=== PATIENT | male | born 1960 | race Caucasian/White ===

== ENCOUNTER 2021-05-29 11:20 | Emergency (ER) | payer MEDICAID ==
[~2021-05-29] VITALS: Ht 182.9 cm; Wt 106.6 kg
[2021-05-29 12:20] VITALS: BP 141/87
[2021-05-29] MEDS ORDERED: GUAI1TBM19 PO (12:25)
[2021-05-29] MEDS ORDERED: IBUP-1957 PO (12:25)
[2021-05-29] MEDS ORDERED: KETOROLAC TROMETHAMINE INJ 60 MG/2 ML VIAL IM ONE (12:30)
[2021-05-29] MEDS ORDERED: GUAIFENESIN/D-METHORPHAN HB 5 ML UDC PO ONE (12:30)
[2021-05-29] MEDS ORDERED: KETOROLAC TROMETHAMINE INJ 30 MG/ML VIAL ONE (12:46)
[2021-05-29] MEDS ORDERED: GUAIFENESIN/D-METHORPHAN HB 5 ML UDC ONE (12:46)
[2021-05-29] MEDS ORDERED: AZIT250T13 PO (13:01)
--- NOTE | 2021-05-29 13:58 | NUR ---
Patient discharged to home in stable condition. Written and verbal after care instructions given. Patient verbalizes understanding of instruction.
--- NOTE | 2021-05-29 14:10 | NUR ---
RECEIVED CALL FROM LAB THAT PATIENT TESTED POSITIVE FOR COVID, CALLED AND LEFT MESSAGE TO INFORM PATIENT
== END 2021-05-29 14:11 | disposition home or self-care (01) ==
LOC: ER 11:24
DX: U07.1 COVID-19 (principal); E78.00 Pure hypercholesterolemia, unspecified; I10 Essential (primary) hypertension; R91.8 Other nonspecific abnormal finding of lung field
CPT/HCPCS: 71045; 87426; 96372; 99284; C9803; J1885

== ENCOUNTER 2021-05-30 22:28 | Inpatient (IN) | payer MEDICAID ==
[~2021-05-30] VITALS: Ht 182.9 cm; Wt 95.3 kg
[~2021-05-30 22:28] MED LIST: AZIT250T13 PO; GUAI1TBM19 PO; IBUP-1957 PO
--- NOTE | 2021-05-30 23:25 | NUR ---
PATIENT BIBWIFE C/O COUGH, FEVER AND DIFFICULTY BREATHING. PATIENT TESTED + FOR COVID 3 DAYS AGO. ON Z PACK. TOOK MOTRIN 800MG PO AT 1999. PATIENT IS A/O X 4, RR EVEN AND UNLABORED, NO SOB NOTED. PATIENT CONNECTED TO TOOL AND DIE MAKER AND POX.
[2021-05-31] MEDS ORDERED: CEFTRIAXONE 1GM BAG (ER ONLY) 50 ML IV ONE (00:17)
[2021-05-31] MEDS ORDERED: AZITHROMYCIN 500 MG VIAL ONE (00:18)
--- NOTE | 2021-05-31 00:27 | NUR ---
BLOOD COLLECTED AND SENT TO LAB
[2021-05-31] MEDS ORDERED: AZITHROMYCIN 500 MG in IV D5W 250 ML IV ONE (00:30)
[2021-05-31] MEDS ORDERED: CEFTRIAXONE 1GM BAG (ER ONLY) 1 GM/50 ML PIGGYBACK IV ONE (00:30)
[2021-05-31] MEDS ORDERED: IV NS 0.9% 500 ML BAG IV ONE (00:30)
[2021-05-31 00:42] LABS: BASOPHILS % (AUTO) 0.3 % (0.0-2.0); EOSINOPHILS % (AUTO) 0.1 % (0.0-6.0); HEMATOCRIT 38 % (39-51); HEMOGLOBIN 12.8 g/dL (13.5-17.5); LYMPHOCYTES # (AUTO) 0.6 K/uL (0.8-4.8); LYMPHOCYTES % (AUTO) 15.3 % (20.0-44.0); MEAN CORPUSCULAR HGB CONC 34 g/dl (31.0-36.0); MEAN CORPUSCULAR VOLUME 86 fL (80-96); MONOCYTES # (AUTO) 0.2 K/uL (0.1-1.30); MONOCYTES % (AUTO) 5.6 % (2.0-12.0); NEUTROPHILS % (AUTO) 78.7 % (43.0-81.0); PLATELET COUNT (AUTO) 121 K/uL (150-450); RED BLOOD CELL COUNT(AUTO) 4.44 MIL/uL (4.5-6.0); WHITE BLOOD COUNT (AUTO) 3.8 K/uL (4.3-11.0)
[2021-05-31 01:18] LABS: ALANINE AMINOTRANSFERASE 106 U/L (12-78); ALBUMIN 3.3 g/dL (3.4-5.0); ALKALINE PHOSPHATASE 47 U/L (46-116); ASPARTATE AMINOTRANSFERASE 86 U/L (15-37); BILIRUBIN,DIRECT 0.2 mg/dL (0.0-0.2); BILIRUBIN,TOTAL 0.4 mg/dL (0.2-1.0); CALCIUM, SERUM 7.7 mg/dL (8.5-10.1); CARBON DIOXIDE 31 mmol/L (21-32); CHLORIDE 95 mmol/L (98-107); CREATININE 1.2 mg/dL (0.6-1.3); GLUCOSE 106 mg/dL (74-106); POTASSIUM 4.4 mmol/L (3.5-5.1); SODIUM SERUM 130 mmol/L (136-145); TOTAL PROTEIN, SERUM 6.9 g/dL (6.4-8.2); UREA NITROGEN, BLOOD 17 mg/dL (7-18)
--- NOTE | 2021-05-31 06:00 | NUR ---
PATIENT RESTING IN BED, VSS, IV SITE INTACT FLUSHING WELL RAC 20G. WILL CONTINUE TO MONITOR.
--- NOTE | 2021-05-31 08:00 | NUR ---
THE PATIENT IS RECEIVED IN ER BED#5. ALERT AND ORIENTED X4. DENIES PAIN. RECEIVING OXYGEN AT 3L/MIN VIA NASAL CANNULA AND DENIES SOB. RESPIRATION REGULAR AND UNLABORED. ATTACHED TO THE MONITOR. WARM BLANKET PROVIDED FOR COMFORT. WILL CONTINUE TO MONITOR THE PATIENT.
--- NOTE | 2021-05-31 08:02 | NUR ---
THE PATIENT`S OXYGEN SATURATION IN ROOM AIR IS AT 88%. KEEPING THE PATIENT ON OXYGEN AT 3L/MIN VIA NASAL CANNULA AND KEEP SATURATION WNL.
--- NOTE | 2021-05-31 09:36 | NUR ---
CALLED [facility] AT [phone] AND WAS NOTIFIED THAT THE REQUEST FOR THE PORTABLE OXYGEN WAS ACCEPTED. THEN CALLED [facility] (DELIVERING O2 TANK) AT [phone] AND WAS NOTIFIED THAT THERE IS NO CURRENT ETA FOR THE DELIVERY BUT DID LEAVE ER NUMBER TO NOTIFY ONCE AN ETA HAS BEEN AQUIRED.
--- NOTE | 2021-05-31 10:03 | NUR ---
SPOKE WITH [facility] CRNA RITIKA AND INFORMED HER THAT THE PATIENT NEEDS OXYGEN DELIVERY AND MONOCLONIAN ANTIBODIES PER DR TAPIA TO BE SET UP AT HOME. [facility] CRNA MADE AWARE TO FOLLOW UP WITH RITIKA. RITIKA CRNA TEL [phone] RITIKA FAX [phone]
--- NOTE | 2021-05-31 11:06 | NUR ---
FAXED CLINICALS TO [facility] (FAX: [phone])
--- NOTE | 2021-05-31 11:48 | NUR ---
CALLED [facility] AND WAS NOTIFIED THAT THE PROCESS FOR PT ADMISSION TO [facility] WILL BEGIN. AND WILL RECIEVE A CALL BACK WITH ANY UPDATES
[2021-05-31] MEDS ORDERED: DEXAMETHASONE SOD PHOSPHATE 6 MG in IV D5W 50 ML IV SCH ×2 (12:00→13:30)
--- NOTE | 2021-05-31 12:03 | NUR ---
CALLED [facility] SENIOR WATER RESOURCES ENGINEER AND WAS NOTIFIED THAT [facility] DID NOT HAVE ANY BEDS AVAILABLE.
--- NOTE | 2021-05-31 12:04 | NUR ---
NOTIFIED DR. CURRIE THAT THE PT WILL BE STAYING HERE.
--- NOTE | 2021-05-31 12:17 | NUR ---
CALLED NURSING SUP REGARDING PT BED
--- NOTE | 2021-05-31 12:40 | NUR ---
ROOM 104
[2021-05-31] MEDS ORDERED: ATOR20TA PO (12:50)
[2021-05-31] MEDS ORDERED: AMLO-213 PO (12:50)
--- NOTE | 2021-05-31 12:58 | NUR ---
REPORT GIVEN TO NURSE WORTHY
[2021-05-31] MEDS ORDERED: ZOLPIDEM TARTRATE 5 MG TABLET PO PRN (13:30)
[2021-05-31] MEDS ORDERED: HYDROCODONE/APAP 5/325MG TABLET PO PRN (13:30)
[2021-05-31] MEDS ORDERED: ACETAMINOPHEN 325 MG TABLET PO PRN (13:30)
--- NOTE | 2021-05-31 13:36 | NUR ---
PT TRANSFERRED TO [facility] VIA ACLS PROTOCOL. ALL BELONGINGS WITH PT
[2021-05-31] MEDS: DEXAMETHASONE SOD PHOSPHATE 10 MG/ML VIAL IV SCH ×2 (13:50→21:14)
--- NOTE | 2021-05-31 14:00 | NUR ---
television equipment operator note received patent from er with dx covid under care dr upton alert oriented x3 , placed on tele monitor sr hr 85 , on 3l nc still some sob noted saturation 98% at this time,bed in lowest and locked position , call light within reach , plan of care discussed with patient ,will cont to monitor
[2021-05-31] MEDS: AMLODIPINE BESYLATE 10 MG TABLET PO SCH (14:06)
[2021-05-31 14:46] VITALS: BP 150/95
[2021-05-31] MEDS: GUAIFENESIN/D-METHORPHAN HB 5 ML UDC PO PRN ×2 (15:20→22:57)
[2021-05-31] MEDS: ENOXAPARIN SODIUM 40 MG/0.4 ML DISP.SYRIN SQ SCH (15:20)
[2021-05-31 15:38] LABS: C-REACTIVE PROTEIN 14.8 mg/dL (0.0-0.9)
--- NOTE | 2021-05-31 15:54 | NUR ---
PLASTIC SURGERY ASSISTANT NOTE COUGH MEDICATION ROBITUSSIN GIVEN FOR COUGH ,CALLED TO PHARMACY ABOUT REMDESEVIP STATED THAT STILL AWAITING FOR APPROVED
[2021-05-31 16:27] VITALS: BP 123/73
--- NOTE | 2021-05-31 16:39 | NUR ---
telephone collector note called to pharmacy about remdesevir stated that not ready ye,t will f\u
--- NOTE | 2021-05-31 18:09 | NUR ---
senior telecommunications engineer note called to pharmacy about remdesevir that not ready yet ,stated that awaiting for approve from dr hess , santyf\u spoke with family chava notified that awaiting for medication
--- NOTE | 2021-05-31 18:45 | NUR ---
ms rn note started remdeesevir spoke with ,family about it
[2021-05-31] MEDS ORDERED: REMDESIVIR (CHARGED) 200 MG, *LOADING DOSE 1 EA in IV NS 0.9% 210 ML IV ONE (19:00)
--- NOTE | 2021-05-31 19:45 | NUR ---
RN OPENING NOTE PATIENT IS A/O X4. RECEIVED PATIENT IN BED RESTING WITH NO DISTRESS OR DISCOMFORT. ON TELE MONITOR WITH SINUS RYTHYM, AND HR AT 72. PATIENT IN NO RESPIRATORY DISTRESS OF LABORED BREATHING, ON 3L OF NASAL CANULA SATURATION OF 94%. IV NOTED ON RAC #20 G, FLUSHED AND PATENT. BED IN LOW POSITION, LOCKED, AND CALL LIGHT WITHIN REACH.
[2021-05-31] MEDS ORDERED: CEFTRIAXONE 1 G in IV D5W 50 ML IV SCH (21:00)
[2021-05-31] MEDS: ATORVASTATIN 10 MG TABLET PO SCH (21:13)
[2021-05-31] MEDS: CEFTRIAXONE 2 G in IV D5W 100 ML IV SCH (21:50)
[2021-06-01 02:00] VITALS: BP 129/65
[2021-06-01] MEDS: DEXAMETHASONE SOD PHOSPHATE 10 MG/ML VIAL IV SCH ×3 (05:31→21:54)
--- NOTE | 2021-06-01 06:13 | NUR ---
RN CLOSING NOTE PATIENTS REMAINS IN BED RESTING WITH NO DISTRESS OR DISCOMFORT. A/O X 4 AND COOPERATIVE. IS ON 4L O2 VIA NASAL CANULA , STATING AT 93% WITH HUMIDIFIER. PATIENT DOES NOT HAVE LABORED BREATHING OR GRUNTING. PATIENT IS ON COVID 19 ISOLATION, ALL ISOLATION PRECAUTIONS TAKEN. IV ON R AC PATENT AND FLUSHING WELL. PATIENTS BED IN LOW POSITION, LOCKED, AND CALL LIGHT WITHIN REACH. ALL PATIENT NEEDS MET. WILL ENDORSE PATIENT CARE TO ONCOMING AM SHIFT.
[2021-06-01 06:50] LABS: HEMATOCRIT 38 % (39-51); HEMOGLOBIN 12.9 g/dL (13.5-17.5); LYMPHOCYTES # (AUTO) 0.3 K/uL (0.8-4.8); LYMPHOCYTES % (AUTO) 8.5 % (20.0-44.0); MEAN CORPUSCULAR HGB CONC 34 g/dl (31.0-36.0); MEAN CORPUSCULAR VOLUME 87 fL (80-96); MONOCYTES # (AUTO) 0.3 K/uL (0.1-1.30); NEUTROPHILS # (AUTO) 2.7 K/uL (1.8-8.9); NEUTROPHILS % (AUTO) 82.5 % (43.0-81.0); PLATELET COUNT (AUTO) 155 K/uL (150-450); RED BLOOD CELL COUNT(AUTO) 4.41 MIL/uL (4.5-6.0); WHITE BLOOD COUNT (AUTO) 3.2 K/uL (4.3-11.0)
[2021-06-01 07:13] LABS: ALBUMIN 2.8 g/dL (3.4-5.0); BILIRUBIN,TOTAL 0.3 mg/dL (0.2-1.0); CREATININE 1.2 mg/dL (0.6-1.3); POTASSIUM 4.4 mmol/L (3.5-5.1); TOTAL PROTEIN, SERUM 6.6 g/dL (6.4-8.2)
--- NOTE | 2021-06-01 07:30 | NUR ---
RN AM OPENING NOTE RECEIVED PATIENT ASLEEP, RESPONDS TO NAME AND TOUCH, A/O X4. ON 4L O2 NASAL CANULA. NO DISTRESS OR DISCOMFORT. 98% O2 SAT. RAC #20 G, FLUSHES WELL SITE CLEAR. POC DISCUSSED, VERBALIZED UNDERSTANDING. BED REST FOR NOW. BED IN LOW POSITION, LOCKED, AND CALL LIGHT WITHIN REACH. WILL CONT TO MONITOR.
[2021-06-01 07:48] LABS: C-REACTIVE PROTEIN 15.6 mg/dL (0.0-0.9)
[2021-06-01 08:00] VITALS: BP 140/60
[2021-06-01] MEDS ORDERED: AMLODIPINE BESYLATE 10 MG TABLET PO SCH (09:00)
[2021-06-01] MEDS: AMLODIPINE BESYLATE 10 MG TABLET PO SCH (09:19)
[2021-06-01] MEDS: GUAIFENESIN/D-METHORPHAN HB 5 ML UDC PO PRN ×2 (09:20→20:06)
[2021-06-01] MEDS ORDERED: DEXAMETHASONE SOD PHOSPHATE 10 MG/ML VIAL IV SCH ×2 (09:30→17:30)
--- NOTE | 2021-06-01 09:30 | NUR ---
RN NOTES DUE MEDS GIVEN
[2021-06-01] MEDS ORDERED: DEXTROSE 50%-WATER 50 ML DISP.SYRIN IV PRN (11:00)
[2021-06-01 12:00] VITALS: BP 115/70
[2021-06-01] MEDS: BLOOD SUGAR DIAGNOSTIC 1 EACH STRIP VI SCH ×3 (12:35→21:54)
--- NOTE | 2021-06-01 12:47 | NUR ---
RN NOTES ACCUCHECK DONE. BS 152 MG/DL. PATIENT JUST ATE. REFUSE INSULIN COVERAGE FOR NOW. DR. CURRIE AWARE.
[2021-06-01] MEDS: REMDESIVIR (CHARGED) 100 MG in IV NS 0.9% 100 ML IV SCH (18:12)
--- NOTE | 2021-06-01 19:10 | NUR ---
TELE/RN OPENING NOTE RECEIVED PATIENT SITTING IN CHAIR. ALERT AND ORIENTED X 4. ABLE TO MAKE NEEDS KNOWN. DENIES PAIN AT THIS TIME. CONTINUES ON O2 3L VIA NC WITH NO S/SX OF RESPIRATORY DISTRESS NOTED. IV ACCESS TO RIGHT AC #20G INTACT, PATENT AND SALINE LOCKED. CONTINUES ON IV ABX. CONTINUES ON DECADRON AND REMDESIVIR. C/O COUGH - WILL ADMINISTER PRN COUGH MEDICATION. PATIENT IS AMBULATORY WITH STEADY GAIT. TELE MONITOR CURRENTLY READING SR. CALL LIGHT WITHIN REACH. ASPIRATION, FALL AND SAFETY PRECAUTIONS MAINTAINED. WILL CONTINUE TO MONITOR.
--- NOTE | 2021-06-01 19:25 | NUR ---
RN NOTES ALL NEEDS MET AT THIS TIME. NO SIGNIFICANT CHANGE IN CONDITION. STABLE. ENDORSED TO NEXT SHIFT FOR ALVARO.
[2021-06-01 20:00] VITALS: BP 114/81
[2021-06-01] MEDS ORDERED: MUPIROCIN OINT 2% 22 GM TUBE NS SCH (21:00)
[2021-06-01] MEDS: CEFTRIAXONE 2 G in IV D5W 100 ML IV SCH (21:54)
[2021-06-01] MEDS: ATORVASTATIN 10 MG TABLET PO SCH (21:54)
[2021-06-01] MEDS: ENOXAPARIN SODIUM 40 MG/0.4 ML DISP.SYRIN SQ SCH (21:57)
[2021-06-01] MEDS: *INSULIN REGULAR(HUMULIN R)HUM 100 UNIT/ML VIAL SQ PRN (22:14)
[2021-06-02] MEDS: DEXAMETHASONE SOD PHOSPHATE 10 MG/ML VIAL IV SCH ×3 (05:16→21:26)
[2021-06-02 06:10] LABS: BASOPHILS % (AUTO) 0.1 % (0.0-2.0); HEMATOCRIT 42 % (39-51); LYMPHOCYTES # (AUTO) 0.9 K/uL (0.8-4.8); LYMPHOCYTES % (AUTO) 8.9 % (20.0-44.0); MEAN CORPUSCULAR HGB CONC 34 g/dl (31.0-36.0); MEAN CORPUSCULAR VOLUME 87 fL (80-96); MONOCYTES # (AUTO) 0.5 K/uL (0.1-1.30); MONOCYTES % (AUTO) 5.5 % (2.0-12.0); NEUTROPHILS # (AUTO) 8.3 K/uL (1.8-8.9); NEUTROPHILS % (AUTO) 85.5 % (43.0-81.0); PLATELET COUNT (AUTO) 272 K/uL (150-450); WHITE BLOOD COUNT (AUTO) 9.7 K/uL (4.3-11.0)
--- NOTE | 2021-06-02 06:10 | NUR ---
TELE/RN CLOSING NOTE PATIENT CURRENTLY SLEEPING IN BED. ALERT AND ORIENTED X 4. ABLE TO MAKE NEEDS KNOWN. DENIES PAIN AT THIS TIME. CONTINUES ON O2 4L VIA NC WITH NO S/SX OF RESPIRATORY DISTRESS NOTED. IV ACCESS TO RIGHT AC #20G INTACT, PATENT AND SALINE LOCKED. CONTINUES ON IV ABX. CONTINUES ON DECADRON AND REMDESIVIR. PATIENT IS AMBULATORY WITH STEADY GAIT. TELE MONITOR CURRENTLY READING SR HR 75. CALL LIGHT WITHIN REACH. ASPIRATION, FALL AND SAFETY PRECAUTIONS MAINTAINED. WILL ENDORSE PLAN OF CARE TO ONCOMING SHIFT.
[2021-06-02 07:01] LABS: ALBUMIN 3.1 g/dL (3.4-5.0); BILIRUBIN,DIRECT 0.2 mg/dL (0.0-0.2); BILIRUBIN,TOTAL 0.3 mg/dL (0.2-1.0); TOTAL PROTEIN, SERUM 7.5 g/dL (6.4-8.2)
[2021-06-02 07:05] LABS: ALBUMIN 3.1 g/dL (3.4-5.0); BILIRUBIN,TOTAL 0.3 mg/dL (0.2-1.0); CALCIUM, SERUM 8.4 mg/dL (8.5-10.1); CREATININE 1.5 mg/dL (0.6-1.3); POTASSIUM 4.3 mmol/L (3.5-5.1); TOTAL PROTEIN, SERUM 7.5 g/dL (6.4-8.2)
[2021-06-02 07:08] LABS: C-REACTIVE PROTEIN 10.3 mg/dL (0.0-0.9)
--- NOTE | 2021-06-02 07:42 | NUR ---
RN OPENING NOTE PATIENT RECEIVED IN BED, RESTING. PATIENT ON 5L O2 NC WITH NO SIGNS OF LABORED BREATHING AT THIS TIME. RIGHT AC 20G IN PLACE, PATENT WITH NO SIGNS OF INFILTRATION. NO SIGNS OF DISTRESS NOTED AT THIS TIME. BED LOCKED AND IN LOWEST POSITION, CALL LIGHT WITHIN REACH, 3 SIDE RAILS UP. WILL CONTINUE TO MONITOR.
[2021-06-02 08:00] VITALS: BP 110/64
[2021-06-02] MEDS: BLOOD SUGAR DIAGNOSTIC 1 EACH STRIP VI SCH ×4 (08:04→22:03)
[2021-06-02] MEDS: AMLODIPINE BESYLATE 10 MG TABLET PO SCH (08:26)
[2021-06-02] MEDS: GUAIFENESIN/D-METHORPHAN HB 5 ML UDC PO PRN ×4 (08:35→20:04)
[2021-06-02] MEDS: INSULIN REGULAR, HUMAN 100 UNIT/ML 3 ML VIAL SQ PRN ×4 (08:36→22:08)
[2021-06-02 12:00] VITALS: BP 104/59
[2021-06-02] MEDS ORDERED: ENOXAPARIN SODIUM 40 MG/0.4 ML DISP.SYRIN SQ SCH ×2 (12:00→21:00)
[2021-06-02] MEDS: DOCUSATE SODIUM 100 MG CAPSULE PO SCH ×2 (12:30→17:00)
[2021-06-02 16:00] VITALS: BP 113/62
[2021-06-02] MEDS ORDERED: ALBUTEROL FS 2.5 MG/3 ML VIAL.NEB NEB PRN (16:30)
[2021-06-02] MEDS: REMDESIVIR (CHARGED) 100 MG in IV NS 0.9% 100 ML IV SCH (17:41)
--- NOTE | 2021-06-02 18:31 | NUR ---
RN CLOSING NOTE PATIENT REMAINS IN BED, AWAKE, A&OX4. PATIENT ON 5L O2 NC WITH NO SIGNS OF LABORED BREATHING AT THIS TIME. RIGHT AC 20G IN PLACE, PATENT WITH NO SIGNS OF INFILTRATION. NO SIGNS OF DISTRESS NOTED AT THIS TIME. ALL NEEDS ATTENDED DURING SHIFT. BED LOCKED AND IN LOWEST POSITION, CALL LIGHT WITHIN REACH, 3 SIDE RAILS UP. WILL ENDORSE TO BUSINESS INFORMATION ANALYST NURSE.
--- NOTE | 2021-06-02 19:34 | NUR ---
RN OPENING NOTES RECEIVED CARE OF PATIENT WHILE PATIENT IN BED, A/O X4, ABLE TO VERBALIZE NEEDS. PATIENT ON TELE MONITOR, NSR AT THIS TIME, HR 72. PATIENT ON O2 THERAPY AT 5L VIA NC, O2 SAT 93%, MINOR COUGH NOTED, ALLEVIATED WITH REPOSITIONING AND COUGHING EXERCISES. RIGHT AC 20G IV ACCESS IN PLACE, PATENT WITH NO SIGNS OF INFILTRATION. ALL SAFETY MEASURES IMPLEMENTED. BED LOCKED AND IN LOWEST POSITION, CALL LIGHT WITHIN REACH, 3 SIDE RAILS UP. WILL CONTINUE TO MONITOR FOR ANY CHANGES.
[2021-06-02 20:00] VITALS: BP 114/67
[2021-06-02] MEDS: CEFTRIAXONE 2 G in IV D5W 100 ML IV SCH (21:26)
[2021-06-02] MEDS: ENOXAPARIN SODIUM 40 MG/0.4 ML DISP.SYRIN SQ SCH (21:28)
[2021-06-03] VITALS: BP 130/66
[2021-06-03] MEDS: GUAIFENESIN/D-METHORPHAN HB 5 ML UDC PO PRN ×2 (01:48→18:10)
--- NOTE | 2021-06-03 02:42 | NUR ---
RT NOTES PATIENT'S O2 SAT DECREASED TO 79% WHILE SLEEPING, PATIENT IS ON 5L 02 THERAPY VIA NC. NOTIFIED RT. WILL ASSIST RT WITH INTERVENTIONS. WILL CONTINUE TO MONITOR.
--- NOTE | 2021-06-03 02:44 | NUR ---
RT NOTE FOUND PT ON 5LPM NC, SPO2 AT 89-93%. PLACED ON NRB AT 15L TO IMPROVE O2 WHILE HES ASLEEP. PTS DESATURATES TO BELOW 88 WHILE ASLEEP OR MOVES AROUND A LOT. CHANGED PROBE, PT CURRENTLY SATURATING AT 95-98%. RN AWARE. CHARGE NURSE AWARE. WILL CONTINUE TO MONITOR T/O SHIFT. NO SOB OR S/S OF ACUTE RESPIRATORY DISTRESS NOTED.
--- NOTE | 2021-06-03 03:55 | NUR ---
RN NOTES PATIENT HAS BEEN ON 15L NRB, PATIENT NOW AT 99% O2 SAT, NO SOB NOTED, NO S/S OF ACUTE RESPIRATORY DISTRESS NOTED. WILL CONTINUE TO MONITOR.
[2021-06-03 04:00] VITALS: BP 111/66
[2021-06-03] MEDS: DEXAMETHASONE SOD PHOSPHATE 10 MG/ML VIAL IV SCH ×3 (05:56→21:53)
[2021-06-03 06:30] LABS: BASOPHILS % (AUTO) 0.1 % (0.0-2.0); HEMATOCRIT 39 % (39-51); HEMOGLOBIN 13.1 g/dL (13.5-17.5); LYMPHOCYTES # (AUTO) 0.4 K/uL (0.8-4.8); LYMPHOCYTES % (AUTO) 4.4 % (20.0-44.0); MEAN CORPUSCULAR HGB CONC 34 g/dl (31.0-36.0); MEAN CORPUSCULAR VOLUME 86 fL (80-96); MONOCYTES # (AUTO) 0.8 K/uL (0.1-1.30); MONOCYTES % (AUTO) 8.5 % (2.0-12.0); NEUTROPHILS # (AUTO) 8.3 K/uL (1.8-8.9); PLATELET COUNT (AUTO) 290 K/uL (150-450); RED BLOOD CELL COUNT(AUTO) 4.46 MIL/uL (4.5-6.0); WHITE BLOOD COUNT (AUTO) 9.5 K/uL (4.3-11.0)
--- NOTE | 2021-06-03 06:58 | NUR ---
RN CLOSING NOTES WILL ENDORSE PATIENT TO DAY SHIFT NURSE WHILE PATIENT IN BED, A/O X4, ABLE TO VERBALIZE NEEDS. PATIENT ON TELE MONITOR, NSR AT THIS TIME, HR 73. PATIENT ON O2 THERAPY AT 15L VIA NONREBREATHER MASK, O2 SAT 100%, MINOR COUGH NOTED. RIGHT AC 20G IV ACCESS IN PLACE, PATENT WITH NO SIGNS OF INFILTRATION. ALL SAFETY MEASURES IMPLEMENTED. BED LOCKED AND IN LOWEST POSITION, CALL LIGHT WITHIN REACH, 3 SIDE RAILS UP. WILL ENDORSE TO DAY SHIFT NURSE FOR ALVARO.
[2021-06-03 07:00] LABS: ALBUMIN 2.8 g/dL (3.4-5.0); BILIRUBIN,TOTAL 0.3 mg/dL (0.2-1.0); CALCIUM, SERUM 8.3 mg/dL (8.5-10.1); CREATININE 1.2 mg/dL (0.6-1.3); POTASSIUM 4.6 mmol/L (3.5-5.1); TOTAL PROTEIN, SERUM 6.7 g/dL (6.4-8.2)
[2021-06-03 07:12] LABS: ALBUMIN 2.9 g/dL (3.4-5.0); BILIRUBIN,DIRECT 0.1 mg/dL (0.0-0.2); BILIRUBIN,TOTAL 0.3 mg/dL (0.2-1.0); TOTAL PROTEIN, SERUM 6.8 g/dL (6.4-8.2)
--- NOTE | 2021-06-03 07:38 | NUR ---
RN OPENING NITE PATIENT RECEIVED IN BED, RESTING. PATIENT ON 15L NRB SATURATING AT 96% WITH NO SIGNS OF LABORED BREATHING AT THIS TIME. RIGHT AC 20G PIV IN PLACE, PATENT WITH NO SIGNS OF INFILTRATION. BED LOCKED AND IN LOWEST POSITION, CALL LIGHT WITHIN REACH, 2 SIDE RAILS UP. NO SIGNS OF DISTRESS NOTED AT THIS TIME. WILL CONTINUE TO MONITOR.
[2021-06-03 08:00] VITALS: BP 105/65
[2021-06-03] MEDS: AMLODIPINE BESYLATE 10 MG TABLET PO SCH (08:07)
[2021-06-03] MEDS: BLOOD SUGAR DIAGNOSTIC 1 EACH STRIP VI SCH ×4 (08:10→22:54)
[2021-06-03] MEDS: DOCUSATE SODIUM 100 MG CAPSULE PO SCH ×2 (08:10→16:53)
[2021-06-03] MEDS: ENOXAPARIN SODIUM 40 MG/0.4 ML DISP.SYRIN SQ SCH ×2 (08:11→21:54)
[2021-06-03] MEDS: INSULIN REGULAR, HUMAN 100 UNIT/ML 3 ML VIAL SQ PRN ×3 (08:33→22:53)
--- NOTE | 2021-06-03 09:50 | NUR ---
RN NOTE PATIENT ON HIGH FLOW NC PER MD ORDER SATURATING OF 98%. WILL CONTINUE TO MONITOR.
[2021-06-03] MEDS ORDERED: FUROSEMIDE 40 MG/4 ML VIAL IV SCH (11:00)
[2021-06-03] MEDS ORDERED: TOCILIZUMAB 400 MG in IV NS 0.9% 80 ML IV ONE (11:30)
[2021-06-03 12:00] VITALS: BP 110/67
[2021-06-03] MEDS ORDERED: methylPREDNISolone SOD SUCC 40 MG/ML VIAL IV ONE (14:30)
[2021-06-03] MEDS ORDERED: diphenhydrAMINE HCL 50 MG/ML VIAL IV ONE (14:30)
[2021-06-03] MEDS ORDERED: ACETAMINOPHEN 325 MG TABLET PO ONE (14:30)
[2021-06-03] MEDS ORDERED: TOCILIZUMAB 800 MG in IV NS 0.9% 80 ML IV ONE (15:00)
--- NOTE | 2021-06-03 15:21 | NUR ---
RN NOTE PATIENT STARTED ON ACTEMRA. PATIENT STILL ON HIGH FLOW NC SATURATING AT 100%. PATIENT TOLERATING THE MEDICATION WELL. WILL CONTINUE TO MONITOR.
[2021-06-03 16:00] VITALS: BP 116/72
--- NOTE | 2021-06-03 17:10 | NUR ---
RN NOTE PATIENT PLACED ON NONREBREATHER AT 15L. O2 SATURATION STABLE BETWEEN 94-98%. PATIENT DOES NOT REPORT ANY SHORTNESS OF BREATH. WILL CONTINUE TO MONITOR.
[2021-06-03] MEDS: REMDESIVIR (CHARGED) 100 MG in IV NS 0.9% 100 ML IV SCH (18:01)
--- NOTE | 2021-06-03 18:39 | NUR ---
RN CLOSING NOTE PATIENT REMAINS IN BED, AWAKE, A&OX4. PATIENT ON 15L NRB SATURATING AT 98% WITH NO SIGNS OF LABORED BREATHING AT THIS TIME. RIGHT AC 20G PIV IN PLACE, PATENT WITH NO SIGNS OF INFILTRATION. ALL NEEDS ATTENDED DURING SHIFT. BED LOCKED AND IN LOWEST POSITION, CALL LIGHT WITHIN REACH, 2 SIDE RAILS UP. NO SIGNS OF DISTRESS NOTED AT THIS TIME. WILL ENDORSE TO COMPOSITION WEATHERBOARD APPLIER NURSE.
--- NOTE | 2021-06-03 19:30 | NUR ---
RN OPENING NOTES RECEIVED CARE OF PATIENT WHILE PATIENT IN BED, A/O X4, ABLE TO VERBALIZE NEEDS. PATIENT ON TELE MONITOR, NSR AT THIS TIME, HR 64. PATIENT ON O2 THERAPY VIA HIGH FLOW NC AT 40L, O2 SAT 96%, MINOR COUGH NOTED. RIGHT AC 20G IV ACCESS IN PLACE, PATENT WITH NO SIGNS OF INFILTRATION. ALL SAFETY MEASURES IMPLEMENTED. BED LOCKED AND IN LOWEST POSITION, CALL LIGHT WITHIN REACH, 3 SIDE RAILS UP. WILL CONTINUE TO MONITOR FOR ANY CHANGES.
[2021-06-03 20:00] VITALS: BP 110/65
[2021-06-03] MEDS: CEFTRIAXONE 2 G in IV D5W 100 ML IV SCH (21:53)
[2021-06-04] VITALS: BP 112/64
[2021-06-04] MEDS: GUAIFENESIN/D-METHORPHAN HB 5 ML UDC PO PRN (01:38)
[2021-06-04 04:00] VITALS: BP 118/65
[2021-06-04] MEDS: DEXAMETHASONE SOD PHOSPHATE 10 MG/ML VIAL IV SCH ×3 (05:27→20:27)
[2021-06-04 06:51] LABS: ALBUMIN 2.7 g/dL (3.4-5.0); BILIRUBIN,TOTAL 0.4 mg/dL (0.2-1.0); CALCIUM, SERUM 7.8 mg/dL (8.5-10.1); CREATININE 1.3 mg/dL (0.6-1.3); POTASSIUM 4.5 mmol/L (3.5-5.1); TOTAL PROTEIN, SERUM 6.5 g/dL (6.4-8.2)
[2021-06-04 06:54] LABS: BASOPHILS % (AUTO) 0.1 % (0.0-2.0); HEMATOCRIT 38 % (39-51); HEMOGLOBIN 12.8 g/dL (13.5-17.5); LYMPHOCYTES # (AUTO) 0.4 K/uL (0.8-4.8); LYMPHOCYTES % (AUTO) 4.3 % (20.0-44.0); MEAN CORPUSCULAR HGB CONC 34 g/dl (31.0-36.0); MEAN CORPUSCULAR VOLUME 86 fL (80-96); MONOCYTES # (AUTO) 0.8 K/uL (0.1-1.30); MONOCYTES % (AUTO) 9.3 % (2.0-12.0); NEUTROPHILS % (AUTO) 86.3 % (43.0-81.0); PLATELET COUNT (AUTO) 335 K/uL (150-450); RED BLOOD CELL COUNT(AUTO) 4.38 MIL/uL (4.5-6.0); WHITE BLOOD COUNT (AUTO) 8.1 K/uL (4.3-11.0)
--- NOTE | 2021-06-04 06:54 | NUR ---
RN CLOSING NOTES WILL ENDORSE PATIENT TO DAY SHIFT NURSE WHILE PATIENT IN BED, SLEEPING BUT WAKES UP TO NAME, A/O X4, ABLE TO VERBALIZE NEEDS. PATIENT ON TELE MONITOR, NSR AT THIS TIME, HR 64. PATIENT ON O2 THERAPY VIA NRB 15L/MIN, O2 SAT 91%, MINOR COUGH NOTED. RIGHT AC 20G IV ACCESS IN PLACE, PATENT WITH NO SIGNS OF INFILTRATION. ALL SAFETY MEASURES IMPLEMENTED. BED LOCKED AND IN LOWEST POSITION, CALL LIGHT WITHIN REACH, 3 SIDE RAILS UP. WILL ENDORSE TO DAY SHIFT NURSE FOR ALVARO.
--- NOTE | 2021-06-04 07:14 | NUR ---
RN OPENING NOTE RECEIVED CARE OF PATIENT WHILE PATIENT IN BED, A/O X4, ABLE TO VERBALIZE NEEDS. PATIENT ON TELE MONITOR, NSR AT THIS TIME. PATIENT ON O2 THERAPY VIA NRB AT 15L, O2 SAT 96%, MINOR COUGH NOTED. RIGHT AC 20G IV ACCESS IN PLACE, PATENT WITH NO SIGNS OF INFILTRATION. ALL SAFETY MEASURES IMPLEMENTED. BED LOCKED AND IN LOWEST POSITION, CALL LIGHT WITHIN REACH, 3 SIDE RAILS UP.
[2021-06-04] MEDS: BLOOD SUGAR DIAGNOSTIC 1 EACH STRIP VI SCH ×4 (07:27→21:39)
[2021-06-04 08:00] VITALS: BP 117/69
[2021-06-04] MEDS ORDERED: AMLODIPINE BESYLATE 10 MG TABLET PO SCH (09:00)
[2021-06-04] MEDS: AMLODIPINE BESYLATE 5 MG TABLET PO SCH (10:24)
[2021-06-04] MEDS: DOCUSATE SODIUM 100 MG CAPSULE PO SCH ×2 (10:24→17:12)
[2021-06-04] MEDS: ENOXAPARIN SODIUM 40 MG/0.4 ML DISP.SYRIN SQ SCH ×2 (10:26→20:28)
[2021-06-04 12:00] VITALS: BP 105/65
--- NOTE | 2021-06-04 15:33 | NUR ---
RN NOTES - RECEIVED PATIENT IN BED SLEEPING EASY TO AROUSE, A/O X4, ABLE TO VERBALIZE NEEDS. HELPED PT TO TOILET, BM SOFT BROWN FORMED NORMAL ODOR NOTED, PATIENT ON TELE MONITOR, NSR , PATIENT ON O2 THERAPY VIA NRB AT 15L, O2 SAT 92-96%, COUGH NOTED. RIGHT AC 20G IV ACCESS IN PLACE, PATENT, INTACT, NO SIGNS OF INFILTRATION, ALL SAFETY MEASURES IMPLEMENTED, BED LOCKED, IN LOWEST POSITION, CALL LIGHT WITHIN REACH, 3 SIDE RAILS UP. COMPLIANT WITH CARE, NO SOB NOTED NOTED NO C/O PAIN, SAFETY MEASURES IN PLACE, BED WHEELS LOCKED, AND BED LOW TO FLOOR.
[2021-06-04 16:00] VITALS: BP 106/58
[2021-06-04] MEDS: INSULIN REGULAR, HUMAN 100 UNIT/ML 3 ML VIAL SQ PRN (17:39)
[2021-06-04] MEDS: REMDESIVIR (CHARGED) 100 MG in IV NS 0.9% 100 ML IV SCH (18:43)
--- NOTE | 2021-06-04 19:30 | NUR ---
RN OPENING NOTE RECEIVED PATIENT IN BED. A/OX4. ON OXYGEN 15L VIA NONREBREATHER. RESPIRATIONS ARE EVEN AND UNLABORED. NO S/S SOB NOTED. PATIENT HAS A DRY COUGH. NO C/O PAIN AT THIS TIME. IN NO APPARENT DISTRESS. IV ACCESS IN RAC#20 PATENT AND SLAINE LOCKED. TELE MONITOR READS SINUS RHYTHM. BED IS LOW AND LOCKED, HOB ELEVATED IN SEMI FOWLERS, SIDE RAILS UPX2, GENNY LIGHT WITHIN REACH.
[2021-06-04 20:00] VITALS: BP 110/70
[2021-06-04] MEDS: CEFTRIAXONE 2 G in IV D5W 100 ML IV SCH (20:27)
[2021-06-04] MEDS: *INSULIN REGULAR(HUMULIN R)HUM 100 UNIT/ML VIAL SQ PRN (21:48)
[2021-06-05] VITALS: BP 119/68
[2021-06-05 04:00] VITALS: BP 118/66
[2021-06-05] MEDS: DEXAMETHASONE SOD PHOSPHATE 10 MG/ML VIAL IV SCH ×3 (05:59→20:51)
[2021-06-05 07:04] LABS: ALBUMIN 2.6 g/dL (3.4-5.0); BILIRUBIN,DIRECT 0.1 mg/dL (0.0-0.2); BILIRUBIN,TOTAL 0.3 mg/dL (0.2-1.0); TOTAL PROTEIN, SERUM 6.1 g/dL (6.4-8.2)
--- NOTE | 2021-06-05 07:51 | NUR ---
[facility] RN NOTE PATIENT IN BED ALERT ORIENTED, ON 15 L NONREBREATHER MASK SATURATION 93% AT THIS TIME, ON TELE MONITOR SR HR 65,BED IN LOWEST AND LOCKED POSITION ,RT AC HL INTACT AND FLUSHED WELL, WITH SLIGHT SOB NOTED AT THIS TIME, WILL CONT TO MONITOR CLOSELY
--- NOTE | 2021-06-05 07:53 | NUR ---
RN CLOSING NOTE RESTING IN BED. A/OX4. O2 15L NRB. NO RESP DISTRESS. NO PAIN, NO DISTRESS. IV MAINTAINED. TELE READS SINUS RHYTHM,. BED IS LOW AND LOCKED, HOB ELEVATED IN SEMI FOWLERS, SIDE RIAL SUP X2, CALL LIGHT WITHIN REACH. WILL ENDORSE TO ONCOMING SHIFT.
[2021-06-05 08:00] VITALS: BP 118/66
[2021-06-05] MEDS: DOCUSATE SODIUM 100 MG CAPSULE PO SCH ×2 (09:11→16:20)
[2021-06-05] MEDS: AMLODIPINE BESYLATE 5 MG TABLET PO SCH (09:12)
[2021-06-05] MEDS: BLOOD SUGAR DIAGNOSTIC 1 EACH STRIP VI SCH ×4 (09:13→22:47)
[2021-06-05] MEDS: ENOXAPARIN SODIUM 40 MG/0.4 ML DISP.SYRIN SQ SCH ×2 (09:13→20:50)
--- NOTE | 2021-06-05 09:50 | NUR ---
[facility] RN NOTE PER DR VANEGAS OK TO PLACE ON ON SIMPLE MASK ,KEEP SATURATION 90%
[2021-06-05] MEDS: GUAIFENESIN/D-METHORPHAN HB 5 ML UDC PO PRN ×2 (10:52→22:28)
--- NOTE | 2021-06-05 10:57 | NUR ---
[facility] RN NOTE C\O COUGH ROBITUSSIN PO GIVEN DR CURRIE AT BESIDE UPDATED PATIENT CONTON OK TO CHANGE ROBITUSSIN PO Q4 HOUR PRN ,ORDER CARRIED OUT
[2021-06-05 12:00] VITALS: BP 98/65
[2021-06-05] MEDS: INSULIN REGULAR, HUMAN 100 UNIT/ML 3 ML VIAL SQ PRN ×2 (12:14→17:06)
--- NOTE | 2021-06-05 14:22 | NUR ---
barbra thomas note on simple mask 10 l ,saturation 91% reposition on lt side and encouraged to be in side on prone position , will monitor Addendum: 06/05/21 at 1431 by HUMBERTO VELÁZQUEZ RN per dr alexsandra mendenhall to insert mid line , order carried out
--- NOTE | 2021-06-05 15:23 | NUR ---
barbra rn note mid line on rt upper arm inserted as ordered , all needs attended, will monitor
[2021-06-05 16:00] VITALS: BP 108/72
--- NOTE | 2021-06-05 18:04 | NUR ---
barbra rn note daughter requesting to give another dose of remdezevir called to dr upton informed about it , stated no extra dose , will speak with daughter tomorrow Addendum: 06/05/21 at 1826 by HUMBERTO VELÁZQUEZ RN assisting to br , able to ambulate to br , all needs attended
--- NOTE | 2021-06-05 19:35 | NUR ---
RN NOTE PT RECEIVED IN BED RESTING. PT IS ON 10L OF O2 VIA SIMPLE FACE MASK SHOWING NO S/S OF RESP DISTRESS. BREATHING EVEN AND UNLABORED. PT IS ALERT AND ORIENTED X4. ON GOLD LETTERER SHOWING NSR. ABLE TO AMBULATE WITH ASSISTANCE. SKIN INTACT. ON REGULAR DIET. IV ACCESS NOTED ON RIGHT UPPER ARM MIDLINE. LINE FLUSHED, PATENT, AND INTACT WITH NO SIGNS OF INFILTRATION. ALL SAFETY MEASURES IMPLEMENTED. CALL LIGHT WITHIN REACH. BED ALARM ON. BED LOCKED AND IN LOWEST POSITION. WILL CONTINUE TO MONITOR AND ASSESS FOR ANY CHANGES DURING SHIFT.
[2021-06-05 20:00] VITALS: BP 120/71
[2021-06-05] MEDS: CEFTRIAXONE 2 G in IV D5W 100 ML IV SCH (20:50)
[2021-06-05] MEDS: *INSULIN REGULAR(HUMULIN R)HUM 100 UNIT/ML VIAL SQ PRN (22:50)
[2021-06-06] VITALS: BP 120/65
[2021-06-06 04:00] VITALS: BP 103/73
[2021-06-06] MEDS: GUAIFENESIN/D-METHORPHAN HB 5 ML UDC PO PRN (05:21)
[2021-06-06] MEDS: DEXAMETHASONE SOD PHOSPHATE 10 MG/ML VIAL IV SCH ×3 (05:21→20:39)
--- NOTE | 2021-06-06 06:39 | NUR ---
RN NOTE NO CHANGES IN PT CONDITION DURING SHIFT. PT IS ON 10L OF O2 VIA SIMPLE FACE MASK SHOWING NO S/S OF RESP DISTRESS. BREATHING EVEN AND UNLABORED. PT DENYING ANY SOB WITH CURRENT FACE MASK. IV ACCESS NOTED ON RIGHT UPPER ARM MIDLINE. LINE FLUSHED, PATENT, AND INTACT WITH NO SIGNS OF INFILTRATION. ALL DUE MEDS GIVEN ORDERED. PT KEPT CLEAN AND COMFORTABLE. ALL SAFETY MEASURES IMPLEMENTED. CALL LIGHT WITHIN REACH. BED ALARM ON. BED LOCKED AND IN LOWEST POSITION. WILL ENDORSE TO MORNING SHIFT RN FOR ALVARO.
[2021-06-06 06:50] LABS: BASOPHILS % (AUTO) 0.1 % (0.0-2.0); HEMATOCRIT 38 % (39-51); HEMOGLOBIN 12.6 g/dL (13.5-17.5); LYMPHOCYTES # (AUTO) 0.4 K/uL (0.8-4.8); LYMPHOCYTES % (AUTO) 3.5 % (20.0-44.0); MEAN CORPUSCULAR HGB CONC 34 g/dl (31.0-36.0); MEAN CORPUSCULAR VOLUME 87 fL (80-96); MONOCYTES # (AUTO) 0.8 K/uL (0.1-1.30); MONOCYTES % (AUTO) 7.8 % (2.0-12.0); NEUTROPHILS % (AUTO) 88.6 % (43.0-81.0); PLATELET COUNT (AUTO) 422 K/uL (150-450); RED BLOOD CELL COUNT(AUTO) 4.35 MIL/uL (4.5-6.0); WHITE BLOOD COUNT (AUTO) 10.2 K/uL (4.3-11.0)
[2021-06-06 06:58] LABS: ALBUMIN 2.6 g/dL (3.4-5.0); BILIRUBIN,TOTAL 0.4 mg/dL (0.2-1.0); CALCIUM, SERUM 7.8 mg/dL (8.5-10.1); CREATININE 1.3 mg/dL (0.6-1.3); POTASSIUM 4.3 mmol/L (3.5-5.1)
[2021-06-06 07:03] LABS: C-REACTIVE PROTEIN 1.2 mg/dL (0.0-0.9)
--- NOTE | 2021-06-06 07:29 | NUR ---
RN OPEN NOTE RECEIVED PT RESTING IN BED ALERT AND ORIENTED X4. PT IS ON 10L VIA SIMPLE FACE MASK O2 SAT 90% SHOWING NO S/S OF RESP DISTRESS OR SOB. BREATHING EVEN AND UNLABORED. IV ACCESS NOTED ON RIGHT UPPER ARM MIDLINE. FLUSHED, PATENT, AND INTACT WITH NO SIGNS OF INFILTRATION. ALL SAFETY MEASURES IMPLEMENTED. CALL LIGHT WITHIN REACH. BED ALARM ON. BED LOCKED AND IN LOWEST POSITION. WILL CONTINUE TO MONITOR
[2021-06-06 08:00] VITALS: BP 124/64
[2021-06-06] MEDS: AMLODIPINE BESYLATE 5 MG TABLET PO SCH (08:33)
[2021-06-06] MEDS: ENOXAPARIN SODIUM 40 MG/0.4 ML DISP.SYRIN SQ SCH ×2 (08:34→20:39)
[2021-06-06] MEDS: DOCUSATE SODIUM 100 MG CAPSULE PO SCH ×2 (08:36→17:11)
[2021-06-06] MEDS: BLOOD SUGAR DIAGNOSTIC 1 EACH STRIP VI SCH ×4 (09:13→21:53)
--- NOTE | 2021-06-06 10:00 | NUR ---
RN NOTE PULMONOLOGY AT BED SIDE, CONTINUE WITH SIMPLE MASK 10 L AND NEW ORDER FOR METFORMIN 02 SAT 90% WILL CONTINUE TO MONITOR
[2021-06-06] MEDS: METFORMIN 500 MG TABLET PO SCH ×2 (11:24→17:11)
[2021-06-06 12:00] VITALS: BP 108/66
[2021-06-06 16:00] VITALS: BP 115/64
[2021-06-06] MEDS: INSULIN REGULAR, HUMAN 100 UNIT/ML 3 ML VIAL SQ PRN (17:33)
--- NOTE | 2021-06-06 18:41 | NUR ---
RN CLOSING NOTE OH REMAINS RESTING IN BED ALERT AND ORIENTED X4. PT IS ON 10L VIA SIMPLE FACE MASK O2 SAT 90% SHOWING NO S/S OF RESP DISTRESS OR SOB. BREATHING EVEN AND UNLABORED. IV ACCESS NOTED ON RIGHT UPPER ARM MIDLINE. FLUSHED, PATENT, AND INTACT WITH NO SIGNS OF INFILTRATION. NO SIGNIFICANT CHANGE DURING THE DAY, PT KEEP COMFORTABLE AND CLEAN, ALL NEEDS MET DURING SHIFT. ALL SAFETY MEASURES IMPLEMENTED. CALL LIGHT WITHIN REACH. BED ALARM ON. BED LOCKED AND IN LOWEST POSITION. WILL ENDORSE TO PRODUCT PLANNERDULSER
--- NOTE | 2021-06-06 19:40 | NUR ---
RN OPENING NOTE RECEIVED PATIENT RESTING IN BED ALERT AND ORIENTED X4. PT IS ON 10L VIA SIMPLE FACE MASK O2 SAT 90% SHOWING NO S/S OF RESP DISTRESS OR SOB. PATIENT IS SHOWING NO UNLABORED BREATHING. IV ACCESS NOTED ON RIGHT UPPER ARM MIDLINE. FLUSHED, PATENT, AND INTACT WITH NO SIGNS OF INFILTRATION.PATIENT ON TELE MONITOR WITH SR AND HR OF 80. ALL SAFETY MEASURES CHECKED, CALL LIGHT WITHIN REACH. BED ALARM ON. BED LOCKED AND IN LOWEST POSITION.
[2021-06-06 20:00] VITALS: BP 114/64
[2021-06-06] MEDS: GUAIFENESIN/CODEINE 10 ML UDC PO PRN (20:39)
[2021-06-07] VITALS: BP 146/81
[2021-06-07 04:00] VITALS: BP 127/78
[2021-06-07] MEDS: DEXAMETHASONE SOD PHOSPHATE 10 MG/ML VIAL IV SCH ×3 (04:04→23:35)
--- NOTE | 2021-06-07 06:20 | NUR ---
RN CLOSING NOTE PATIENT RESTING IN BED ALERT AND ORIENTED X4. PT IS ON 10L VIA SIMPLE FACE MASK O2 SAT 90% SHOWING NO S/S OF RESP DISTRESS OR SOB. PATIENT IS SHOWING NO UNLABORED BREATHING. ALL ISOLATION PRECAUTIONS TAKEN, PT IN COVID ISOLATION. IV ACCESS ON THE RIGHT UPPER ARM MIDLINE. FLUSHED, PATENT, AND INTACT WITH NO SIGNS OF INFILTRATION.PATIENT ON TELE MONITOR WITH SR AND HR OF 57. ALL SAFETY MEASURES CHECKED, CALL LIGHT WITHIN REACH. BED ALARM ON. BED LOCKED AND IN LOWEST POSITION.WILL ENDORSE PATIENT CARE TO ONCOMING MORNING NURSE.
--- NOTE | 2021-06-07 07:25 | NUR ---
RN NOTE REPORT REC'D AT BEDSIDE. PATIENT AWAKE, A/OX4. IN NO ACUTE DISTRESS. ON SIMPLE FACE MASK SATURATING 90%. NO SOB. NO COMPLAINTS MADE. ON ISOLATION PRECAUTION FOR COVID. IV TO BRENDEN MIDLINE PATENT AND INTACT. NO S/SX OF INFILTRATION NOTED. SR ON TELE MONITOR. SAFETY MEASURES OBSERVED. WILL CONTINUE TO MONITOR.
[2021-06-07 07:32] LABS: ALBUMIN 2.7 g/dL (3.4-5.0); BILIRUBIN,DIRECT 0.1 mg/dL (0.0-0.2); BILIRUBIN,TOTAL 0.5 mg/dL (0.2-1.0); TOTAL PROTEIN, SERUM 5.5 g/dL (6.4-8.2)
[2021-06-07 08:00] VITALS: BP 134/75
[2021-06-07] MEDS: DOCUSATE SODIUM 100 MG CAPSULE PO SCH ×2 (08:20→17:13)
[2021-06-07] MEDS: METFORMIN 500 MG TABLET PO SCH ×2 (08:20→17:13)
[2021-06-07] MEDS: AMLODIPINE BESYLATE 5 MG TABLET PO SCH (08:20)
[2021-06-07] MEDS: ENOXAPARIN SODIUM 40 MG/0.4 ML DISP.SYRIN SQ SCH ×2 (08:22→23:29)
[2021-06-07] MEDS: BLOOD SUGAR DIAGNOSTIC 1 EACH STRIP VI SCH ×4 (08:22→22:00)
--- NOTE | 2021-06-07 10:00 | NUR ---
RN NOTE PATIENT ON SIMPLE MASK 10LPM O2 SAT OF 82% INCREASE TO 15LPM O2 SAT OF 86%, PATIENT STARTED WITH NRB @ 12LPM PATIENT O2 SAT OF 95%, DR. VANEGAS MADE AWARE.
[2021-06-07] MEDS: INSULIN REGULAR, HUMAN 100 UNIT/ML 3 ML VIAL SQ PRN ×3 (10:41→17:34)
[2021-06-07 10:46] LABS: C-REACTIVE PROTEIN 0.5 mg/dL (0.0-0.9)
[2021-06-07] MEDS: GUAIFENESIN/CODEINE 10 ML UDC PO PRN (10:51)
[2021-06-07 12:00] VITALS: BP 133/75
[2021-06-07 16:00] VITALS: BP 125/72
--- NOTE | 2021-06-07 18:47 | NUR ---
RN NOTE PT ON BED. WATCHING TV. NO SOB. ON NRB MASK 12LPM SATURATING 90-94. NO C/O PAIN. NEEDS ATTENDED. SL TO BRENDEN MIDLINE INTACT AND PATENT. COVID 19 ISOLATION PRECAUTION AND SAFETY MEASURES OBSERVED. WILL ENDORSE CARE TO NOC RN.
[2021-06-07 20:00] VITALS: BP 113/59
[2021-06-07] MEDS: *INSULIN REGULAR(HUMULIN R)HUM 100 UNIT/ML VIAL SQ PRN (23:40)
[2021-06-08] VITALS: BP 132/69
[2021-06-08 04:00] VITALS: BP 116/59
[2021-06-08] MEDS: DEXAMETHASONE SOD PHOSPHATE 10 MG/ML VIAL IV SCH ×2 (05:12→17:52)
--- NOTE | 2021-06-08 06:45 | NUR ---
RN notes Alert and oriented, able to verbalize needs. In bed resting comfortably with no distress noted. On 12lpm via non rebreather mask, tolerating well. Daughter called and spoke 3x wanting to reposition the patient to prone position. Encourage patient but patient cannot tolerate prone position. Instead patient wanted 2 pillows instead. Patient is able to turn side to side and able to relax for several 2 hours. No significant change of condition. Kept clean and dry. Will endorse to next shift for continuity of care.
--- NOTE | 2021-06-08 06:52 | NUR ---
RN imelda Alert and oriented, in bed resting comfortably. Complaint of severe headache 01/30. Tylenol given with relief. Patient has episode of pullng out IV line and and throwing the iv poll. No injury noted. Was pacified and comforted. Convinced to take his meds and insert another line. Went to sleep calmly. NO significant change of condition. Will endorse to next shift for continuity of care.
--- NOTE | 2021-06-08 07:30 | NUR ---
RN NOTE PATIENT OBSERVED IN BED, AWAKE ALERT AND ORIENTED X4, ABLE TO VERBALIZE NEED. ON NRB MASK 12LPM SATURATING 90%-94%, NO C/O PAIN. ON TELE MONITOR SR AT THIS TIME.WITH BRENDEN MIDLINE INTACT AND PATENT FLUSHING WELL. COVID 19 ISOLATION PRECAUTION AND SAFETY MEASURES OBSERVED. BED WHEELS LOCK, CALL LIGHT WITHIN REACH, WILL CONTINUE TO MONITOR.
[2021-06-08] MEDS: BLOOD SUGAR DIAGNOSTIC 1 EACH STRIP VI SCH ×4 (07:41→22:26)
[2021-06-08] MEDS: INSULIN REGULAR, HUMAN 100 UNIT/ML 3 ML VIAL SQ PRN ×3 (07:42→18:00)
[2021-06-08 08:00] VITALS: BP 117/61
[2021-06-08] MEDS: AMLODIPINE BESYLATE 5 MG TABLET PO SCH (08:58)
[2021-06-08] MEDS: DOCUSATE SODIUM 100 MG CAPSULE PO SCH ×2 (08:58→17:52)
[2021-06-08] MEDS: METFORMIN 500 MG TABLET PO SCH ×2 (08:58→17:52)
[2021-06-08 10:07] LABS: BASOPHILS % (AUTO) 0.1 % (0.0-2.0); EOSINOPHILS % (AUTO) 2.5 % (0.0-6.0); HEMATOCRIT 42 % (39-51); LYMPHOCYTES # (AUTO) 0.7 K/uL (0.8-4.8); LYMPHOCYTES % (AUTO) 5.9 % (20.0-44.0); MEAN CORPUSCULAR HGB CONC 33 g/dl (31.0-36.0); MEAN CORPUSCULAR VOLUME 86 fL (80-96); MONOCYTES # (AUTO) 0.3 K/uL (0.1-1.30); MONOCYTES % (AUTO) 2.3 % (2.0-12.0); NEUTROPHILS # (AUTO) 10.2 K/uL (1.8-8.9); NEUTROPHILS % (AUTO) 89.2 % (43.0-81.0); PLATELET COUNT (AUTO) 476 K/uL (150-450); RED BLOOD CELL COUNT(AUTO) 4.88 MIL/uL (4.5-6.0); WHITE BLOOD COUNT (AUTO) 11.4 K/uL (4.3-11.0)
[2021-06-08] MEDS: ENOXAPARIN SODIUM 40 MG/0.4 ML DISP.SYRIN SQ SCH ×2 (10:37→21:25)
[2021-06-08 10:58] LABS: CALCIUM, SERUM 7.9 mg/dL (8.5-10.1); CREATININE 1.4 mg/dL (0.6-1.3)
[2021-06-08 11:24] LABS: BAND % (MANUAL) 5 % (0.0-5.0); EOSINOPHILS % (MANUAL) 4 % (0-4); LYMPHOCYTES % (MANUAL) 2 % (16-48); MONOCYTES % (MANUAL) 2 % (0-11.0); NEUTROPHILS % (MANUAL) 80 (42-76)
[2021-06-08 11:25] LABS: REACTIVE LYMPHOCYTES 7 % (0-0)
[2021-06-08 12:00] VITALS: BP 121/64
--- NOTE | 2021-06-08 12:00 | NUR ---
RN NOTE PATIENT SEEN BY DR. CURRIE, WILL CONTINUE TO MONITO PATIENT ON O2 @ 12LPM VIA NRB.
[2021-06-08] MEDS: GUAIFENESIN/CODEINE 10 ML UDC PO PRN (12:58)
[2021-06-08 16:00] VITALS: BP 133/75
--- NOTE | 2021-06-08 18:36 | NUR ---
RN NOTE PATIENT OBSERVED IN BED, AWAKE ALERT AND ORIENTED X4, ABLE TO VERBALIZE NEED. ON NRB MASK 12LPM SATURATING 90%-94%, NO C/O PAIN. ON TELE MONITOR SR AT THIS TIME.WITH BRENDEN MIDLINE INTACT AND PATENT FLUSHING WELL. COVID 19 ISOLATION PRECAUTION AND SAFETY MEASURES OBSERVED. BED WHEELS LOCK, CALL LIGHT WITHIN REACH, WILL ENDORSE TO NOC SHIFT.
--- NOTE | 2021-06-08 19:10 | NUR ---
RN NOTES RECEIVED REPORT FROM MORNING RN. PATIENT A/O X4 ABLE TO MAKE NEEDS KNOWN. PATIENT IN BED WATCHING TV NO SOB NOT IN DISTRESS. VITAL SIGNS TAKEN AND RECORDED. PATIENT WITH R UA ML PATENT FLUSHES WELL NO INFILTRATION NOTED. ON NON REBREATHER MASK AT 12L TOLERATING WELL SATING AT 92%. ALL SAFETY MEASURES IN PLACE AT ALL TIMES. BOTH SIDE RAILS UP FOR SAFETY. HOB ELEVATED. CALL LIGHT WITHIN REACH. WILL CLOSELY MONITOR THE PATIENT.
[2021-06-08 20:00] VITALS: BP 120/57
--- NOTE | 2021-06-08 22:10 | NUR ---
RN NOTES BS 121MG/DL NO COVERAGE. PATIENT IS COMFORTABLE IN BED NO DISTRESS. WILL CONTINUE TO MONITOR
[2021-06-09] VITALS: BP 129/61
[2021-06-09 04:00] VITALS: BP 105/63
[2021-06-09] MEDS: DEXAMETHASONE SOD PHOSPHATE 10 MG/ML VIAL IV SCH ×2 (04:48→17:28)
--- NOTE | 2021-06-09 06:48 | NUR ---
RN NOTES PATIENT REMAINS STABLE THE WHOLE SHIFT NO SOB NO DISTRESS NOTED. PATIENT STILL ON NON REBREATHER MASK AT 12L TOLERATING WELL SATING 92-97%. ALL DUE MEDS GIVEN ORDERED.PATIENT ENCOURAGE TO DO DEEP BREATHING AND TURN FROM LEFT TO RIGHT SIDE AND PRONE POSITION TOLERATING WELL. ALL SAFETY MEASURES IN PLACE AT ALL TIMES. HOB ELEVATED. CALL LIGHT WITHIN REACH. BED ON LOWEST POSITION AND LOCKED. ALL NEEDS ATTENDED PROMPTLY. KEPT CLEAN AND DRY AT ALL TIMES. FREQUENT VISUAL MONITORING RENDERED.ENDORSED.
[2021-06-09 07:22] LABS: EOSINOPHILS % (AUTO) 1.3 % (0.0-6.0); HEMATOCRIT 43 % (39-51); HEMOGLOBIN 14.5 g/dL (13.5-17.5); LYMPHOCYTES # (AUTO) 0.3 K/uL (0.8-4.8); LYMPHOCYTES % (AUTO) 1.9 % (20.0-44.0); MEAN CORPUSCULAR HGB CONC 34 g/dl (31.0-36.0); MEAN CORPUSCULAR VOLUME 86 fL (80-96); MONOCYTES # (AUTO) 0.3 K/uL (0.1-1.30); MONOCYTES % (AUTO) 2.4 % (2.0-12.0); NEUTROPHILS # (AUTO) 12.9 K/uL (1.8-8.9); NEUTROPHILS % (AUTO) 94.4 % (43.0-81.0); PLATELET COUNT (AUTO) 380 K/uL (150-450); RED BLOOD CELL COUNT(AUTO) 4.99 MIL/uL (4.5-6.0); WHITE BLOOD COUNT (AUTO) 13.7 K/uL (4.3-11.0)
--- NOTE | 2021-06-09 07:40 | NUR ---
RN NOTE PT RESTING IN BED, WITH O2 NON REBREATHER MASK ON 15L, WITH O2 SAT OF 96%. NOT IN RESPIRATORY DISTRESS. ALERT AND VERBALLY RESPONSIVE. BRENDEN MIDLINE IN PLACE AND PATENT. ALL SAFETY MEASURES FOLLOWED. WILL CONTINUE TO MONITOR.
[2021-06-09] MEDS: BLOOD SUGAR DIAGNOSTIC 1 EACH STRIP VI SCH ×4 (07:58→21:28)
[2021-06-09 08:00] VITALS: BP 118/70
[2021-06-09 08:22] LABS: ALANINE AMINOTRANSFERASE 100 U/L (12-78); ALBUMIN 2.8 g/dL (3.4-5.0); ALKALINE PHOSPHATASE 51 U/L (46-116); ASPARTATE AMINOTRANSFERASE 35 U/L (15-37); BILIRUBIN,TOTAL 0.5 mg/dL (0.2-1.0); CALCIUM, SERUM 8.1 mg/dL (8.5-10.1); CARBON DIOXIDE 27 mmol/L (21-32); CHLORIDE 101 mmol/L (98-107); CREATININE 1.4 mg/dL (0.6-1.3); GLUCOSE 92 mg/dL (74-106); POTASSIUM 4.7 mmol/L (3.5-5.1); SODIUM SERUM 135 mmol/L (136-145); TOTAL PROTEIN, SERUM 5.7 g/dL (6.4-8.2); UREA NITROGEN, BLOOD 31 mg/dL (7-18)
[2021-06-09] MEDS: METFORMIN 500 MG TABLET PO SCH (09:44)
[2021-06-09] MEDS: DOCUSATE SODIUM 100 MG CAPSULE PO SCH ×2 (09:44→17:28)
[2021-06-09] MEDS: AMLODIPINE BESYLATE 5 MG TABLET PO SCH (09:45)
[2021-06-09] MEDS: ENOXAPARIN SODIUM 40 MG/0.4 ML DISP.SYRIN SQ SCH ×2 (09:48→21:28)
[2021-06-09] MEDS: GUAIFENESIN/CODEINE 10 ML UDC PO PRN ×2 (09:57→21:15)
[2021-06-09 10:13] LABS: FERRITIN 870 ng/mL (8-388)
[2021-06-09 10:16] LABS: C-REACTIVE PROTEIN < 0.2 mg/dL (0.0-0.9)
[2021-06-09 12:00] VITALS: BP 116/67
[2021-06-09 16:00] VITALS: BP 163/93
--- NOTE | 2021-06-09 19:44 | NUR ---
RN NOTE PT RESTING IN BED, WITH O2 NON REBREATHER MASK ON 15L, WITH O2 SAT OF 93-98%. NOT IN RESPIRATORY DISTRESS. ALERT AND VERBALLY RESPONSIVE. BRENDEN MIDLINE IN PLACE AND PATENT. ALL SAFETY MEASURES FOLLOWED. WILL CONTINUE TO MONITOR. NO SS OF HYPO/HYPERGLYCEMIA NOTED THIS SHIFT. ALL DUE MEDICATIONS TAKEN. ENDORSED TO NEXT SHIFT RN.
--- NOTE | 2021-06-09 19:44 | NUR ---
RN NOTE RECEIVED PATIENT IN BED, AWAKE, ALERT, AND VERBALLY RESPONSIVE. AOX4. ABLE TO MAKE NEEDS KNOWN. BREATHING EVEN AT THIS TIME, MILD SHORTNESS OF BREATH NOTED. TOLERATING OXYGEN AT 15L/MIN VIA NON-REBREATHER MASK. RIGHT NOW PATIENT WIT SATURATION OF 90% TO 93% WHILE TALKING. DRY COUGH NOTED. DENIES CHEST PAIN. PATIENT ON TELE MONITORING, SR, AT 63 BPM. SKIN WARM AND DRY, DENIES BODY PAIN AT THIS TIME. NOTED WITH BRENDEN MIDLINE, PATENT. NO INFILTRATION NOTED. NO BLEEDING NOTED AT THIS TIME. BED LOW, IN LOCKED POSITION, CALL LIGHT WITHIN REACH.
[2021-06-09 20:00] VITALS: BP 139/68
--- NOTE | 2021-06-09 20:37 | NUR ---
RN NOTE SPOKE WITH RELATIVE, BRADLEY, GAVE AN UPDATE ON PATIENTS CONDITION.
[2021-06-09] MEDS: *INSULIN REGULAR(HUMULIN R)HUM 100 UNIT/ML VIAL SQ PRN (21:33)
--- NOTE | 2021-06-09 21:34 | NUR ---
RN NOTE PATIENT REQUESTING FOR COUGH MEDICINE. PATIENT NOTED WITH MILD NON PRODUCTIVE COUGH. WHEN COUGHING, OXYGEN DROPS TO 85-88 PERCENT. PATIENT ON NON-REBREATHER MASK AT 15L/MIN. ADMINISTERED ROBITUSSIN/CODEINE 10 ML PER MD ORDER. WILL CONTINUE TO MONITOR. CALL LIGHT WITHIN REACH.
--- NOTE | 2021-06-09 23:05 | NUR ---
RN NOTE PATIENT TOLERATING 13L/MIN VIA NON-REBREATHER. OXYGEN SATURATION OF 93 PERCENT. HOWEVER, SATURATION DROPS TO 88-89% WHEN REPOSITIONING AND TALKING. PATIENT PREFERS TO SLEEP ON RIGHT SIDE AT THIS TIME. WILL CONTINUE TO MONITOR. CALL LIGHT WITHIN REACH.
[2021-06-10] VITALS: BP 118/70
--- NOTE | 2021-06-10 00:18 | NUR ---
RN NOTE PATIENT SLEEPING AT THIS TIME. STILL ON NON-REBREATHER MASK, TITRATED OXYGEN TO 12L/MIN. TOLERATING WELL AT 96% OXYGEN. OXYGEN SATURATION TAKEN DURING RESTING PERIOD. HOB ELEVATED 30 DEGREES. NO COUGH AT THIS TIME. WILL CONTINUE TO MONITOR, CALL LIGHT WITHIN REACH.
[2021-06-10 04:00] VITALS: BP 116/77
[2021-06-10] MEDS: DEXAMETHASONE SOD PHOSPHATE 10 MG/ML VIAL IV SCH ×3 (04:21→20:26)
--- NOTE | 2021-06-10 05:40 | NUR ---
RN NOTE SPUTUM COLLECTED, PLACED IN STERILE CUP/BIOHAZARD BAG, PLACED IN FRIDGE. LAB NOTIFIED.
--- NOTE | 2021-06-10 07:23 | NUR ---
RN MORNING NOTE PT RECEIVED IN BED SLEEPING. PT IS ON 12 L NON REBREATHER MASK SAT 95% TOLERATING WELL WITH NO SIGNS OF LABORED BREATHING OR DISTRESS. PT IS AOX4 ESTONIAN SPEAKING. ON TELE MONITOR SR. PT IS BR, REGULAR DIET, IV ACCESS BRENDEN MIDLINE. BED IS LOCKED IN LOWEST POSITION X2 GUARD RAILS, ALL HOSPITAL PROTOCOLS ARE IN PLACE. WILL CONTINUE TO MONITOR THIS SHIFT.
[2021-06-10 08:00] VITALS: BP 113/76
--- NOTE | 2021-06-10 08:00 | NUR ---
RN NOTE ACCIDENTALLY CHARTED UNDER WRONG USER ACCOUNT.
--- NOTE | 2021-06-10 08:00 | NUR ---
RN NOTE ACCUCHECK PT BS 94. PER SLIDING SCALE, NO COVERAGE NEEDED AT THIS TIME.
[2021-06-10] MEDS: BLOOD SUGAR DIAGNOSTIC 1 EACH STRIP VI SCH ×4 (08:05→21:22)
[2021-06-10] MEDS: INSULIN REGULAR, HUMAN 100 UNIT/ML 3 ML VIAL SQ PRN ×2 (09:30→12:41)
[2021-06-10] MEDS: AMLODIPINE BESYLATE 5 MG TABLET PO SCH (09:30)
[2021-06-10] MEDS: DOCUSATE SODIUM 100 MG CAPSULE PO SCH ×2 (09:31→17:20)
[2021-06-10] MEDS: ENOXAPARIN SODIUM 40 MG/0.4 ML DISP.SYRIN SQ SCH ×2 (09:32→20:28)
[2021-06-10] MEDS: GUAIFENESIN/CODEINE 10 ML UDC PO PRN ×3 (09:37→20:25)
[2021-06-10 12:00] VITALS: BP 139/76
--- NOTE | 2021-06-10 12:00 | NUR ---
RN NOTE O2 TITRATION PT IS ON 12L VIA NON REBREATHER SAT 94%. WILL TITRATE TO 11L AND CONTINUE TO MONITOR O2 SAT AND TOLERATION.
--- NOTE | 2021-06-10 12:41 | NUR ---
RN NOTE ACCUCHECK PT BS 95. PER SLIDING SCALE, NO COVERAGE NEEDED AT THIS TIME.
--- NOTE | 2021-06-10 14:30 | NUR ---
RN NOTE O2 TITRATION PT CONTINUES TO BE ON 11L VIA NON REBREATHER MAST IN LATERAL LEFT PRONE POSITION. PT SAT 98% TOLERATING WELL WITH NO SIGNS OF LABORED BREATHING OR DISTRESS. WILL CONTINUE TO MONITOR.
[2021-06-10 16:00] VITALS: BP 139/82
--- NOTE | 2021-06-10 17:15 | NUR ---
RN NOTE MEDICATION DECADRON APPEARS ON EMAR, BUT NOT ON SCHEDULED MEDS ON OMNICELL. SPOKE WITH PHARMACY, SHRUTHI MEDINA TO PULL FUTURE DOSE IN ORDER TO GIVE CURRENT SCHEDULED DOSE.
--- NOTE | 2021-06-10 17:39 | NUR ---
RN NOTE O2 TITRATION PT IS ON 11L VIA NON REBREATHER SAT 98% WHILE IN PRONE LEFT LATERAL POSITION. WILL TITRATE TO 10L AND CONTINUE TO MONITOR O2 SAT AND TOLERATION.
--- NOTE | 2021-06-10 18:44 | NUR ---
RN CLOSING NOTE PT IS RESTING IN BED WITH HOB SEMI FOWLERS EATING DINNER. PT IS ON 10 L NON REBREATHER MASK SAT 95% TOLERATING WELL WITH NO SIGNS OF LABORED BREATHING OR DISTRESS. PT IS AOX4 LUXEMBOURGISH SPEAKING. ON TELE MONITOR SR. PT IS BR, REGULAR DIET, IV ACCESS BRENDEN MIDLINE. PLAN IS TO CONTINUE TO TOLERATE PT O2 TOLERATED. PT HAD NO BM THIS SHIFT. BED IS LOCKED IN LOWEST POSITION X2 GUARD RAILS, ALL HOSPITAL PROTOCOLS ARE IN PLACE. ALL MEDICATIONS GIVEN AND ALL NEEDS MET. WILL ENDORSE TO CASTING MACHINE SET UP OPERATOR NURSE FOR ALVARO.
[2021-06-10 20:00] VITALS: BP 123/70
[2021-06-10] MEDS: *INSULIN REGULAR(HUMULIN R)HUM 100 UNIT/ML VIAL SQ PRN (21:25)
[2021-06-11] VITALS: BP 125/75
[2021-06-11 04:00] VITALS: BP 116/54
--- NOTE | 2021-06-11 06:50 | NUR ---
RN CLOSING NOTE PATIENT ASLEEP AROUSES TO VERBAL STIMULI, ON 10 L NON REBREATHER MASK SAT > 94% TOLERATING WELL, WITH EPISODES OF DESATURATION ONLY WHEN HE MOVES, BUT QUICKLY IMPROVES TO 90S WITH THE HIGHEST 98%, SINUS TED ON THE MONITOR MOST OF THE NIGHT, WITH HR 50-60S, SOME EPISODES OF HR IN MID 40S, BUT NOT SUSTAINED, BRENDEN MIDLINE S/L, ENCOURAGED PRONE POSITION, BUT PATIENT PREFER LEFT SIDED, BED IS LOCKED IN LOWEST POSITION X2 GUARD RAILS, CALL LIGHT W/I REACH, REPORT GIVEN TO DAUGHTER, WILL ENDORSE CONTINUITY OF CARE TO ONCOMING NURSE.
--- NOTE | 2021-06-11 07:32 | NUR ---
RN OPENING NOTES; RECEIVED PT IN BED IN SEMI FOWLERS POS. PT A/OX4, NO SOB OR DISTRESS NOTED. PT HAS NO C/O PAIN AT THIS TIME. PT ON NRM AT 10L TOLERATING WELL SATING AT 97-98%. BRENDEN ML NOTED, FLUSHED WITH NO SIGNS OF INFILTRATION. ENCOURAGE PT TO BE IN PRONE POS. PT STATES HE DOES NOT LIKE BEING IN PRONE. EDUCATION DONE, PT STATES UNDERSTANDING. ALL SAFETY MEASURES RENDERED, BED IN LOWEST POS. LOCKED, RAILS X3 WITH CALL LIGHT WITHIN REACH. WILL CONTINUE TO MONITOR.
[2021-06-11] MEDS: BLOOD SUGAR DIAGNOSTIC 1 EACH STRIP VI SCH ×4 (07:42→20:53)
[2021-06-11] MEDS: INSULIN REGULAR, HUMAN 100 UNIT/ML 3 ML VIAL SQ PRN ×3 (07:42→16:37)
--- NOTE | 2021-06-11 07:43 | NUR ---
RN NOTES; BLOOD SUGAR TAKEN WITH RESULTS OF 94. NO INSULIN NEEDED PER SLIDING SCALE. WILL CONTINUE TO MONITOR.
[2021-06-11 08:00] VITALS: BP 135/77
[2021-06-11] MEDS: AMLODIPINE BESYLATE 5 MG TABLET PO SCH (08:28)
[2021-06-11] MEDS: DOCUSATE SODIUM 100 MG CAPSULE PO SCH ×2 (08:29→16:30)
[2021-06-11] MEDS: ENOXAPARIN SODIUM 40 MG/0.4 ML DISP.SYRIN SQ SCH ×2 (08:29→20:29)
--- NOTE | 2021-06-11 11:06 | NUR ---
rn notes blood sugar check with a result of 114. no insulin need per sliding scale.
[2021-06-11 12:00] VITALS: BP 125/78
[2021-06-11 16:00] VITALS: BP 118/76
--- NOTE | 2021-06-11 16:38 | NUR ---
RN NOTES; B/S TAKEN WITH RESULT 102. NO INSULIN GIVEN PER SLIDING SCALE. WILL CONTINUE TO MONITOR.
--- NOTE | 2021-06-11 18:30 | NUR ---
RN CLOSING NOTES; PT IN BED IN PRONE POSITION. PT A/OX4, NO C/O PAIN AT THIS TIME. NO SOB OR DISTRESS NOTED. PT ON RNM AT 10LPM SATING 94-98. PT DOWNGRADED TO TELEMETRY. ATTEMPTED TO PUT PT ON NC AT 6LPM. PT COULD NOT TOLERATE, SO PUT PT BACK ON NRM. BRENDEN ML NOTED, FLUSHED PATENT WITH ON SIGNS OF INFECTION. ALL MEDICATIONS GIVEN AND TOLERATED WELL. PT HAD L BM, PT WAS ABLE TO ASSIST IN CLEAN UP. PT KEPT CLEAN, DRY AND COMFORTABLE. ALL SAFETY MEASURES RENDERED, BED LOCKED IN LOWEST POS. SIDE RAILS UP X3, WITH CALL LIGHT WITHIN REACH. NO SIGNIFICANT CHANGES IN PT HEALTH STATUS. WILL ENDORSE TO PRINTER MAINTAINER RN. PT IN STABLE CONDITION.
[2021-06-11 20:00] VITALS: BP 101/70
[2021-06-11] MEDS: GUAIFENESIN/CODEINE 10 ML UDC PO PRN (20:28)
[2021-06-11] MEDS: *INSULIN REGULAR(HUMULIN R)HUM 100 UNIT/ML VIAL SQ PRN (20:53)
[2021-06-12] VITALS: BP 114/72
[2021-06-12 04:00] VITALS: BP 107/65
[2021-06-12 06:31] LABS: BASOPHILS % (AUTO) 0.2 % (0.0-2.0); EOSINOPHILS % (AUTO) 1.3 % (0.0-6.0); HEMATOCRIT 41 % (39-51); HEMOGLOBIN 13.7 g/dL (13.5-17.5); LYMPHOCYTES # (AUTO) 0.7 K/uL (0.8-4.8); LYMPHOCYTES % (AUTO) 6.5 % (20.0-44.0); MEAN CORPUSCULAR HGB CONC 34 g/dl (31.0-36.0); MEAN CORPUSCULAR VOLUME 87 fL (80-96); MONOCYTES # (AUTO) 0.5 K/uL (0.1-1.30); MONOCYTES % (AUTO) 4.5 % (2.0-12.0); NEUTROPHILS # (AUTO) 9.3 K/uL (1.8-8.9); NEUTROPHILS % (AUTO) 87.5 % (43.0-81.0); PLATELET COUNT (AUTO) 365 K/uL (150-450); WHITE BLOOD COUNT (AUTO) 10.6 K/uL (4.3-11.0)
--- NOTE | 2021-06-12 06:47 | NUR ---
RN NOTES, PATIENT ASLEEP AROUSES TO VERBAL STIMULI, ON 9 L NON REBREATHER MASK SAT > 94% TOLERATING WELL, WITH EPISODES OF DESATURATION ONLY WHEN HE MOVES, BUT QUICKLY IMPROVES TO 90S, 92-96%, NSR/SINUS TED WITH HR MOSTLY 50-60S, BRENDEN MIDLINE S/L, ENCOURAGED PRONE POSITION, BUT PATIENT PREFER LEFT SIDED, BED LOCKED IN LOWEST POSITION X2 GUARD RAILS, CALL LIGHT W/I REACH, REPORT GIVEN TO DAUGHTER X2 DURING SHIFT, WILL ENDORSE CONTINUITY OF CARE TO ONCOMING NURSE.
[2021-06-12 06:49] LABS: ALANINE AMINOTRANSFERASE 62 U/L (12-78); ALBUMIN 2.5 g/dL (3.4-5.0); ALKALINE PHOSPHATASE 45 U/L (46-116); ASPARTATE AMINOTRANSFERASE 24 U/L (15-37); BILIRUBIN,TOTAL 0.5 mg/dL (0.2-1.0); CALCIUM, SERUM 7.8 mg/dL (8.5-10.1); CARBON DIOXIDE 25 mmol/L (21-32); CHLORIDE 103 mmol/L (98-107); CREATININE 1.2 mg/dL (0.6-1.3); GLUCOSE 81 mg/dL (74-106); SODIUM SERUM 135 mmol/L (136-145); TOTAL PROTEIN, SERUM 4.9 g/dL (6.4-8.2); UREA NITROGEN, BLOOD 28 mg/dL (7-18)
[2021-06-12 07:04] LABS: C-REACTIVE PROTEIN < 0.2 mg/dL (0.0-0.9)
--- NOTE | 2021-06-12 07:18 | NUR ---
RN OPENING NOTES; RECEIVED PT IN BED IN SUPINE POS. PT A/OX4, NO SOB OR DISTRESS NOTED. PT HAS NO C/O PAIN AT THIS TIME. PT ON NRM AT 10L TOLERATING WELL SATING AT 96%. BRENDEN ML NOTED, NO SIGNS OF INFILTRATION. PT STATED HE HAS TRIED BEING IN PRONE POS, BUT HE DOES HAS TO GET USE TO IT. WILL TRY TO DECREASE O2 TODAY TO SEE IF PT CAN TOLERATE. ALL SAFETY MEASURES RENDERED, BED IN LOWEST POS. LOCKED, RAILS X3 WITH CALL LIGHT WITHIN REACH. WILL CONTINUE TO MONITOR.
[2021-06-12] MEDS: BLOOD SUGAR DIAGNOSTIC 1 EACH STRIP VI SCH ×4 (07:35→21:46)
[2021-06-12] MEDS: INSULIN REGULAR, HUMAN 100 UNIT/ML 3 ML VIAL SQ PRN ×3 (07:35→16:35)
--- NOTE | 2021-06-12 07:36 | NUR ---
RN NOTES; B/S TAKEN AT 77. NO INSULIN NEEDED PER SLIDING SCALE. WILL CONTINUE TO MONITOR. PT ENCOURAGE TO EAT HIS BREAKFAST.
[2021-06-12 08:00] VITALS: BP 97/56
[2021-06-12] MEDS: DEXAMETHASONE SOD PHOSPHATE 10 MG/ML VIAL IV SCH (08:48)
[2021-06-12] MEDS: DOCUSATE SODIUM 100 MG CAPSULE PO SCH ×2 (08:48→16:29)
[2021-06-12] MEDS: AMLODIPINE BESYLATE 5 MG TABLET PO SCH (08:49)
[2021-06-12] MEDS: ENOXAPARIN SODIUM 40 MG/0.4 ML DISP.SYRIN SQ SCH ×2 (08:49→21:29)
[2021-06-12 10:19] LABS: EOSINOPHILS % (MANUAL) 2 % (0-4); LYMPHOCYTES % (MANUAL) 10 % (16-48); METAMYELOCYTES % 1 % (0-0); MONOCYTES % (MANUAL) 4 % (0-11.0); MYELOCYTES % 1 % (0-0); NEUTROPHILS % (MANUAL) 82 (42-76)
--- NOTE | 2021-06-12 11:12 | NUR ---
RN NOTES; B/S TAKEN WITH RESULT OF 96. NO INSULIN NEEDED PER SLIDING SCALE.
[2021-06-12 12:00] VITALS: BP 98/51
[2021-06-12] MEDS: GUAIFENESIN/CODEINE 10 ML UDC PO PRN (13:24)
[2021-06-12 16:00] VITALS: BP 123/72
--- NOTE | 2021-06-12 16:36 | NUR ---
RN NOTES; BS TAKEN WITH RESULT OF 102. NO INSULIN NEEDED PER SLIDING SCALE. WILL CONTINUE TO MONITOR.
--- NOTE | 2021-06-12 18:22 | NUR ---
RN CLOSING NOTES; PT IN BED IN PRONE POSITION. A/OX4, NO SOB OR DISTRESS NOTED. PT IS NOW ON NC AT 4LPM. SATING BETWEEN 92%-95%. NO C/O PAIN AT THIS TIME. ALL MEDICATIONS GIVEN AND TOLERATED WELL. PT KEPT CLEAN, DRY AND COMFORTABLE. OSEI CALLED AND WAS GIVEN AN UPDATE ON PT CURRENT HEALTH STATUS. ALL SAFETY MEASURES RENDERED, BED IN LOWEST POS. LOCKED, SIDE RAILS X3 WITH CALL LIGHT WITHIN REACH. WILL ENDORSE TO INTERACTIVE MEDIA PROJECT MANAGER RN. NO SIGNIFICANT CHANGES IN PT HEALTH STATUS DURING SHIFT. PT IN STABLE CONDITION.
--- NOTE | 2021-06-12 19:44 | NUR ---
RN OPENING NOTES; RECEIVED PT IN BED IN SEMI- HSU POSITION. ALERT, ORIENTED X4, VERBALLY RESPONSIVE. ON 4L/MIN VIA N/C, O2 SAT 94%. NO SOB OR DISTRESS NOTED. BREATHING EVEN AND UNLABORED. NO C/O PAIN AT THIS MOMENT. NO ACUTE DISTRESS. BRENDEN MIDLINE INTACT AND PATENT. NO S/S OF INFILTRATION. ALL SAFETY MEASURES RENDERED, BED IN LOWEST POSITION AND LOCKED, SIDE RAILS X3 UP. PLACE CALL LIGHT WITHIN REACH. WILL CONTINUE TO MONITOR.
[2021-06-12 20:00] VITALS: BP 122/70
[2021-06-12] MEDS: *INSULIN REGULAR(HUMULIN R)HUM 100 UNIT/ML VIAL SQ PRN (21:49)
--- NOTE | 2021-06-12 21:50 | NUR ---
RN NOTES: BLOOD SUGAR 126. NO COVERAGE GIVEN. NO S/S OF HYPER/HYPOGLYCEMIA
[2021-06-13] VITALS: BP 92/62
[2021-06-13 04:00] VITALS: BP 98/64
--- NOTE | 2021-06-13 06:43 | NUR ---
RN CLOSING NOTES; PATIENT IN SLEEPING, EASILY AROUSABLE, ALERT, ORIENTED X4, VERBALLY RESPONSIVE. ON 4L/MIN VIA N/C, O2 SAT 96%. BREATHING EVEN AND UNLABORED. DUE MEDS GIVEN ORDER. NO C/O PAIN OR DISCOMFORT. NO ACUTE DISTRESS. BRENDEN MIDLINE INTACT AND PATENT. NO S/S OF INFILTRATION. COOPERATIVE WITH CARE. ALL SAFETY MEASURES RENDERED, BED IN LOWEST POSITION AND LOCKED, SIDE RAILS X3 UP. PLACE CALL LIGHT WITHIN REACH. WILL ENDORSE TO MORNING SHIFT NURSE.
[2021-06-13] MEDS: BLOOD SUGAR DIAGNOSTIC 1 EACH STRIP VI SCH ×4 (07:38→21:24)
[2021-06-13 08:00] VITALS: BP 103/69
[2021-06-13] MEDS: DOCUSATE SODIUM 100 MG CAPSULE PO SCH ×2 (08:10→16:12)
[2021-06-13] MEDS: DEXAMETHASONE SOD PHOSPHATE 10 MG/ML VIAL IV SCH (08:10)
[2021-06-13] MEDS: ENOXAPARIN SODIUM 40 MG/0.4 ML DISP.SYRIN SQ SCH ×2 (08:12→21:13)
--- NOTE | 2021-06-13 10:38 | NUR ---
PATIENT SAT ROOM AIR AT REST 86% NEED HOME OXYGEN PER DR. CURRIE,CASE MANAGEMENT NOTIFIED.
[2021-06-13 12:00] VITALS: BP 96/63
[2021-06-13 16:00] VITALS: BP 123/59
--- NOTE | 2021-06-13 18:35 | NUR ---
RN CLOSING NOTES; PATIENT REMAIN SLEEPING, EASILY AROUSABLE, ALERT, ORIENTED X4, VERBALLY RESPONSIVE. ON 4L/MIN VIA N/C, O2 SAT 96%. BREATHING EVEN AND UNLABORED. DUE MEDS GIVEN ORDER. NO C/O PAIN OR DISCOMFORT. NO ACUTE DISTRESS. BRENDEN MIDLINE INTACT AND PATENT. NO S/S OF INFILTRATION. COOPERATIVE WITH CARE. BLOOD SUGAR CHECKED 3 TIMES, AT 7:30 WAS 71, AT 1200 WAS 99, AT 1700 WAS 95, ORANGE JUICE AND FOOD PROVIDED AT EACH TIME. THERE WAS NO S/SX OF HYPOGLYCEMIA NOTED. ALL SAFETY MEASURES RENDERED, BED IN LOWEST POSITION AND LOCKED, SIDE RAILS X3 UP. PLACE CALL LIGHT WITHIN REACH. WILL ENDORSE TO MORNING SHIFT NURSE.
--- NOTE | 2021-06-13 19:10 | NUR ---
RN NOTES RECEIVED REPORT FROM MORNING RN. PATIENT A/O X 4 ABLE TO MAKE NEEDS KNOWN. WITH OXYGEN INHALATION VIA NASAL CANULA AT 4LPM TOLERATING WELL SATING 97%. WITH BREDNEN MIDLINE PATENT FLUSHES WELL. VITAL SIGNS TAKEN AND RECORDED. ALL SAFETY MEASURES IN PLACE AT ALL TIMES. CALL LIGHT WITHIN REACH. HOB ELEVATED. BED ON LOWEST POSITION AND LOCKED. CALL LIGHT WITHIN REACH. WILL CONTINUE TO MONITOR THE PATIENT.
[2021-06-13 20:00] VITALS: BP 123/66
[2021-06-13] MEDS ORDERED: ATORVASTATIN 10 MG TABLET PO SCH (22:00)
--- NOTE | 2021-06-13 22:00 | NUR ---
RN NOTES BS 121MG/DL NO COVERAGE. PATIENT COMFORTABLE IN BED. WILL CONTINUE TO MONITOR.
[2021-06-14] VITALS: BP 112/73
--- NOTE | 2021-06-14 | NUR ---
RN NOTES PATIENT IN BED. NO DISTRESS O2 SAT 97%. OXYGEN INHALATION VIA NC DECREASED TO 3LPM TOLERATING WELL BY THE PATIENT SATING 96%. WILL CLOSELY MONITOR THE PATIENT.
[2021-06-14 04:00] VITALS: BP 107/69
--- NOTE | 2021-06-14 06:48 | NUR ---
RN NOTES PATIENT REMAINS STABLE NO SIGNIFICANT CHANGES IN HEALTH CONDITION THIS SHIFT. NO SOB NO DISTRESS PATIENT ON 3L PM VIA NC TOLERATING WELL SATING 96%.ALL DUE MEDS GIVEN ORDERED. ALL SAFETY MEASURES IN PLACE AT ALL TIMES, BED ON LOWEST POSITION AND LOCKED. CALL LIGHT WITHIN REACH. ALL NEEDS ATTENDED PROMPTLY. ENDORSED.
[2021-06-14 06:57] LABS: ALANINE AMINOTRANSFERASE 102 U/L (12-78); ALBUMIN 2.5 g/dL (3.4-5.0); ALKALINE PHOSPHATASE 40 U/L (46-116); ASPARTATE AMINOTRANSFERASE 34 U/L (15-37); BILIRUBIN,TOTAL 0.5 mg/dL (0.2-1.0); CALCIUM, SERUM 7.8 mg/dL (8.5-10.1); CARBON DIOXIDE 30 mmol/L (21-32); CHLORIDE 102 mmol/L (98-107); CREATININE 1.2 mg/dL (0.6-1.3); GLUCOSE 77 mg/dL (74-106); SODIUM SERUM 137 mmol/L (136-145); TOTAL PROTEIN, SERUM 5.5 g/dL (6.4-8.2); UREA NITROGEN, BLOOD 24 mg/dL (7-18)
--- NOTE | 2021-06-14 07:30 | NUR ---
RN NOTE BLOOD GLUCOSE AT 7:30 WAS 73, PROVIDED ORANGE JUICE AND FOOD, REASSESS AFTER ONE HOUR, IT WAS 132.
--- NOTE | 2021-06-14 07:30 | NUR ---
RN OPENING NOTES; RECEIVED PT IN BED IN SEMI- HSU POSITION. ALERT, ORIENTED X4, VERBALLY RESPONSIVE. ON 3L/MIN VIA N/C, O2 SAT 94%. NO SOB OR DISTRESS NOTED. BREATHING EVEN AND UNLABORED. NO C/O PAIN AT THIS MOMENT. NO ACUTE DISTRESS. BRENDEN MIDLINE INTACT AND PATENT. NO S/S OF INFILTRATION. ALL SAFETY MEASURES RENDERED, BED IN LOWEST POSITION AND LOCKED, SIDE RAILS X3 UP. PLACE CALL LIGHT WITHIN REACH. WILL CONTINUE TO MONITOR.
[2021-06-14] MEDS: BLOOD SUGAR DIAGNOSTIC 1 EACH STRIP VI SCH (07:53)
[2021-06-14 08:00] VITALS: BP 108/57
[2021-06-14] MEDS: DOCUSATE SODIUM 100 MG CAPSULE PO SCH (08:49)
[2021-06-14] MEDS: ENOXAPARIN SODIUM 40 MG/0.4 ML DISP.SYRIN SQ SCH (08:49)
[2021-06-14] MEDS: GUAIFENESIN/CODEINE 10 ML UDC PO PRN (08:55)
[2021-06-14] MEDS ORDERED: DEXAMETHASONE SOD PHOSPHATE 10 MG/ML VIAL IV SCH (09:00)
[2021-06-14 09:32] LABS: C-REACTIVE PROTEIN < 0.2 mg/dL (0.0-0.9)
--- NOTE | 2021-06-14 11:16 | NUR ---
RN NOTE EXPLAINED TO PT AND FAMILY MEMBER DAUGHTER, THAT ACCORDING TO DR CURRIE, LIPITOR AND BP MED IS ON HOLD AND NEED TO FOLLOW UP WITH PCP.
--- NOTE | 2021-06-14 11:45 | NUR ---
RN NOTE pt dc at 11:45, with portable o2, at 3 l/m, the pick the pt up.
== END 2021-06-14 11:54 | disposition home or self-care (01) | DRG 137 ==
LOC: ER 23:21 → TELE1 05-31 13:21 → MEDSG1 05-31 18:21 → TELE1 06-01 08:06 → TELE-TD 06-03 10:18 → TELE1 06-11 15:33 → MEDSG1 06-14 11:32
PROVIDERS: ADMIT Internal Medicine; ATTEND Internal Medicine
PROC: XW033E5 Introduction of Remdesivir Anti-infective into Peripheral Vein, Percutaneous Approach, New Technology Group 5 (ICD-10-PCS; 2021-05-31)
PROC: XW033H5 Introduction of Tocilizumab into Peripheral Vein, Percutaneous Approach, New Technology Group 5 (ICD-10-PCS; principal; 2021-06-03)
PROC: 05HB33Z Insertion of Infusion Device into Right Basilic Vein, Percutaneous Approach (ICD-10-PCS; 2021-06-05)
DX: U07.1 COVID-19 (principal); J96.01 Acute respiratory failure with hypoxia; J12.82 Pneumonia due to coronavirus disease 2019; N17.9 Acute kidney failure, unspecified; D69.6 Thrombocytopenia, unspecified; J15.9 Unspecified bacterial pneumonia; I10 Essential (primary) hypertension; E78.5 Hyperlipidemia, unspecified; E66.9 Obesity, unspecified; K59.00 Constipation, unspecified; E78.00 Pure hypercholesterolemia, unspecified; Z79.899 Other long term (current) drug therapy; R73.03 Prediabetes; Z87.891 Personal history of nicotine dependence; R74.01 Elevation of levels of liver transaminase levels; E66.01 Morbid (severe) obesity due to excess calories; Z68.28 Body mass index [BMI] 28.0-28.9, adult
CPT/HCPCS: 36410; 36415; 71045-TC; 80048-TC; 80053-TC; 80074; 80076-TC; 82728-TC; 82962-TC; 83605-TC; 83880; 84484-TC; 85025-TC; 85378-TC; 85610-TC; 85730-TC; 86140-TC; 86480; 87040-TC; 87070-TC; 87081-TC; 87899; 93970-TC; 94799-TC; A4216; G0378; J0456; J0696; J1100; J1200; J1650; J1815; J1940; J2920; J3262; J7030; J7040; J7050; J7060; U0003